=== PATIENT | female | born 1970 | race Asian ===

== ENCOUNTER 2020-09-18 15:27 | Outpatient (CLI) | payer OTHER | END 2020-09-18 22:11 | disposition home or self-care (01) | LOC: INF 15:27 | PROVIDERS: ATTEND Internal Medicine | DX: Z23 Encounter for immunization (principal) | CPT/HCPCS: 96372 ==

== ENCOUNTER 2020-10-10 15:13 | Outpatient (CLI) | payer OTHER | END 2020-10-10 22:02 | disposition home or self-care (01) | LOC: INF | PROVIDERS: ATTEND Internal Medicine | DX: Z23 Encounter for immunization (principal) | CPT/HCPCS: 96372 ==